=== PATIENT | male | born 1985 | race Caucasian/White ===

== ENCOUNTER 2018-03-07 16:41 | Emergency (ER) | payer OTHER ==
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
[2018-03-07] MEDS ORDERED: DIAZEPAM 5 MG TABLET ONE (19:18)
== END 2018-03-07 19:36 | disposition home or self-care (01) ==
LOC: ER 16:41
DX: T50.996A Underdosing of other drugs, medicaments and biological substances, initial encounter (principal); Z91.138 Patient's unintentional underdosing of medication regimen for other reason
CPT/HCPCS: 99282